=== PATIENT | female | born 1990 | race American Indian/Alaskan Native ===

== ENCOUNTER 2018-12-03 19:27 | Emergency (ER) | payer SELFPAY ==
[2018-12-03 19:40] VITALS: PULSE 87; RESP 20; TEMP 98.6; O2SAT 98
--- NOTE | 2018-12-03 21:32 | C.PDOC ---
History Of Present Illness 28 y/o female brought in by ambulance for evaluation s/p syncopal episode after riding the PATH train [employer]. Patient states the train was crowded and cold. She was wearing a heavy jacket stood up and fainted. She denies any head trauma or other injury. Patient was states she awoke and recovered to baseline immediately. She recalls all events and denies seizure activity or bowel/bladder incontinence. Patient denies having any chest pain, dyspnea, dizziness, palpitations, cold sweats, nausea or vomiting prior to the incident. Time Seen by Provider: 12/03/18 21:21 Chief Complaint (Nursing): Syncope History Per: Patient History/Exam Limitations: no limitations Onset/Duration Of Symptoms: Mins Current Symptoms Are (Timing): Gone Number Of Syncopal Episodes: 1 Activity At Onset Of Symptoms: Standing Associated Symptoms Preceding Syncopal Episode: No Predromal Symptoms (Sudden Onset) Seizure Or Post-ictal Symptoms: None Past Medical History Reviewed: Historical Data, Nursing Documentation, Vital Signs Vital Signs: Last Vital Signs Temp 98.6 F 12/03/18 19:35 Pulse 87 12/03/18 19:35 Resp 20 12/03/18 19:35 BP 108/83 12/03/18 19:35 Pulse Ox 98 12/03/18 19:35 Surgical History: No Surg Hx Family History: States: No Known Family Hx - Social History Hx Alcohol Use: Yes Hx Substance Use: No - Immunization History Hx Tetanus Toxoid Vaccination: No Hx Influenza Vaccination: No Hx Pneumococcal Vaccination: No Review Of Systems Except As Marked, All Systems Reviewed And Found Negative. Constitutional: Negative for: Fever, Sweats Eyes: Negative for: Vision Change Cardiovascular: Negative for: Chest Pain, Palpitations Respiratory: Negative for: Shortness of Breath Gastrointestinal: Negative for: Nausea, Vomiting Musculoskeletal: Negative for: Neck Pain, Back Pain Skin: Negative for: Lesions, Bruising Neurological: Positive for: Other (Syncope x1). Negative for: Weakness, Numbness, Confusion, Headache, Dizziness Physical Exam - Physical Exam Appears: Well, Non-toxic, No Acute Distress Skin: Warm, Dry, No Rash Head: Atraumatic, Normacephalic, No Swelling, No Laceration Eye(s): bilateral: Normal Inspection, PERRL, EOMI Nose: Normal Oral Mucosa: Moist Neck: Trachea Midline, No Midline Cervical Tenderness, No Paracervical Tenderness, Supple Chest: Symmetrical Cardiovascular: Rhythm Regular, No Murmur Respiratory: Normal Breath Sounds, No Accessory Muscle Use Gastrointestinal/Abdominal: Soft, No Tenderness, No Distention Back: Normal Inspection Extremity: Bilateral: Atraumatic, Normal Color And Temperature, Normal ROM Pulses: Left Dorsalis Pedis: Normal, Right Dorsalis Pedis: Normal Neurological/Psych: Oriented x3, Normal Speech, Normal Cognition, Normal Cranial Nerves, No Cerebellar Signs, Other (No focal deficits) Gait: Steady ED Course And Treatment ECG: Interpreted By Me ECG Rhythm: Sinus Rhythm ECG Interpretation: Normal Rate From EC O2 Sat by Pulse Oximetry: 98 (RA) Pulse Ox Interpretation: Normal Progress Note: EKG ordered and reviewed. Medical Decision Making Medical Decision Making: vasovagal syncope standing from sitting on the PATH train normal EKG no underlying issues. Disposition Doctor Will See Patient In The: Office Counseled Patient/Family Regarding: Studies Performed, Diagnosis - Disposition Referrals: [facility] [Outside] [address] [facility] [place] [Outside] [facility] [Outside] [facility] [Outside] Disposition: HOME/ ROUTINE Disposition Time: 21:31 Condition: GOOD Additional Instructions: normal EKG outpatient follow-up as needed. Instructions: Syncope (Fainting), Vasovagal Response (DC) Forms: [employer] (Cuban) - Clinical Impression Clinical Impression: Syncope - Scribe Statement The provider has reviewed the documentation as recorded by the Doloresibferdinand Reynolds Provider Attestation: All medical record entries made by the Doloresibe were at my direction and personally dictated by me. I have reviewed the chart and agree that the record accurately reflects my personal performance of the history, physical exam, medical decision making, and the department course for this patient. I have also personally directed, reviewed, and agree with the discharge instructions and disposition.
[2018-12-03 21:52] VITALS: BP 101/67
--- NOTE | 2018-12-04 16:51 | CARD ---
APPROVED REPORT Date of service: 12/03/2018 EKG Measurement Heart [id number] AL [id number] <Conclusion> Normal sinus rhythm Possible Left atrial enlargement Borderline ECG
== END 2018-12-03 21:50 | disposition home or self-care (01) ==
LOC: C.ER 19:27
DX: R55 Syncope and collapse (principal)